=== PATIENT | male | born 1950 | race Caucasian/White ===

== ENCOUNTER 2017-01-31 06:42 | Observation (INO) | payer BC ==
[~2017-01-31] VITALS: Ht 175.3 cm; Wt 90.1 kg
[2017-01-31] VITALS (9 sets, daily range): BP systolic 114–137; BP diastolic 74–89; PULSE 46–73; TEMP 97.9–98
[2017-01-31] MEDS ORDERED: CELEBREX 200MG200 MG PO (07:56)
[2017-01-31 08:32] LABS: BASO % 0.6 % (0.0-2.0); EOS # 0.1 (0.0-0.7); EOS % 2.6 % (0-4.0); GRAN # 3.4 (1.4-6.5); GRAN % 63.3 % (42.2-75.2); HEMATOCRIT 45.4 % (42.0-52.0); HEMOGLOBIN 15.5 g/dl (13.5-18.0); LYMPH # 1.4 (1.2-3.4); LYMPH % 25.3 % (20.0-51.0); MEAN CELL VOLUME 85 fl (80.0-100.0); MEAN CORPUSCULAR HEMOGLOBIN 29 pg (27.0-31.0); MEAN CORPUSCULAR HGB CONC 34 g/dl (33.0-37.0); MEAN PLATELET VOLUME 11.8 fl (7.4-10.4); MONO # 0.4 (0.1-0.6); MONO % 7.8 % (1.7-9.3); PLATELET COUNT 160 K/mm3 (130-400); RED BLOOD COUNT 5.34 M/mm3 (4.20-5.60); REDCELL DISTRIBUTION WIDTH-CV 13.1 % (11.5-14.5); WHITE BLOOD COUNT 5.4 K/mm3 (4.8-10.8)
[2017-01-31 08:35] LABS: PROTHROMBIN TIME 11.6 SECONDS (9.7-12.8)
[2017-01-31 08:40] LABS: CALCIUM 9.2 mg/dL (8.4-10.2); CREATININE, serum 0.97 mg/dL (0.66-1.25)
== END 2017-01-31 22:15 | disposition home or self-care (01) ==
LOC: MEDICAL 07:03
PROVIDERS: Internal Medicine Interventional Cardiology
DX: I49.5 Sick sinus syndrome (principal); I47.2 Ventricular tachycardia; Z82.49 Family history of ischemic heart disease and other diseases of the circulatory system
CPT/HCPCS: C1785; C1894; C1898; G0378; G0379; J0690; J1200; J2250; J2930; J3010; J3370; J7040; J7050

== ENCOUNTER → 2018-07-07 | Outpatient (CLI) | payer MEDICARE, BC ==
[~2018-07-07] MED LIST: CELEBREX 200MG200 MG PO
== END ==
LOC: COL.CARD 13:00
DX: S06.9X9S Unspecified intracranial injury with loss of consciousness of unspecified duration, sequela (principal); F02.80 Dementia in other diseases classified elsewhere, unspecified severity, without behavioral disturbance, psychotic disturbance, mood disturbance, and anxiety; Z87.820 Personal history of traumatic brain injury

== ENCOUNTER 2018-08-28 13:45 | Outpatient (RCR) | payer MEDICARE, BC | END 2018-09-06 | disposition home or self-care (01) | LOC: MKS.ESL.OT | DX: R41.89 Other symptoms and signs involving cognitive functions and awareness (principal); F80.2 Mixed receptive-expressive language disorder | CPT/HCPCS: G8984-GO; G8985-GO; G9168-GN; G9169-GN ==

== ENCOUNTER 2018-10-20 12:45 | Outpatient (RCR) | payer MEDICARE, BC | END 2018-12-06 | disposition home or self-care (01) | LOC: WSST | DX: S06.9X0S Unspecified intracranial injury without loss of consciousness, sequela (principal) ==

== ENCOUNTER 2019-12-31 11:08 | Day surgery (SDC) | payer MEDICARE, BC ==
[2019-12-31] VITALS (12 sets, daily range): BP systolic 110–155; BP diastolic 78–96; PULSE 59–72; TEMP 98.7
[~2019-12-31] VITALS: Ht 175.3 cm; Wt 123.9 kg
[2019-12-31] MEDS ORDERED: KAPSPARGO SPRIN25 MG PO (12:19)
[2019-12-31] MEDS ORDERED: XARELTO20 MG PO (12:20)
[2019-12-31] MEDS ORDERED: MULTAQ400 MG PO (12:20)
[2019-12-31] MEDS ORDERED: PROSCAR 5MG5 MG PO (12:20)
[2019-12-31] MEDS ORDERED: ARICEPT10 MG PO (12:21)
[2019-12-31] MEDS ORDERED: ZOLOFT 50MG50 MG PO (12:21)
[2019-12-31] MEDS ORDERED: OMEGA-3 1000 MG1 CAP PO (12:22)
[2019-12-31] MEDS ORDERED: MUCINEX1200 MG PO (12:23)
[2019-12-31] MEDS ORDERED: TYLENOL 325MG325 MG PO (12:23)
[2019-12-31 12:25] LABS: HEMATOCRIT 43.7 % (42.0-52.0); HEMOGLOBIN 14.3 g/dl (13.5-18.0); MEAN CELL VOLUME 88 fl (80.0-100.0); MEAN CORPUSCULAR HEMOGLOBIN 29 pg (27.0-31.0); MEAN CORPUSCULAR HGB CONC 33 g/dl (33.0-37.0); MEAN PLATELET VOLUME 10.9 fl (7.4-10.4); PLATELET COUNT 184 K/mm3 (130-400); RED BLOOD COUNT 4.99 M/mm3 (4.20-5.60); REDCELL DISTRIBUTION WIDTH-CV 13.7 % (11.5-14.5)
[2019-12-31 12:31] LABS: INR 1.1 (0.8-3.0); PROTHROMBIN TIME 12.3 SECONDS (9.7-12.8)
--- NOTE | 2019-12-31 12:31 | NUR ---
Pt to procedure,report to Esperanza Cabral.
[2019-12-31 12:34] LABS: PARTIAL THROMBOPLASTIN TIME 39.8 SECONDS (26.0-37.0)
[2019-12-31 12:38] LABS: CALCIUM 8.6 mg/dL (8.4-10.2); CREATININE, serum 0.87 (0.66-1.25); POTASSIUM 4.4 mmol/L (3.4-5.0)
--- NOTE | 2019-12-31 12:50 | NUR ---
SEE MERGE DOCUMENTATION FOR MEDICATION ADMINISTRATION TIMES AND INTRA/POST PROCEDURE SEDATION ASSESSMENTS. RIGHT HAND BARBEAU TEST POSITIVE.
--- NOTE | 2019-12-31 17:30 | NUR ---
Pt shut off monitor while this nurse went out of romm per pt .Unable to record recent vital signs due to monitor shut off.Last set obtained and documented. Discharge instructions given to pt.pt verbalizes understanding.Pt has hx of tramatic brain injury so instructions reveiwed with .
== END 2019-12-31 17:53 | disposition home or self-care (01) ==
LOC: COL.CAR 11:08
PROVIDERS: Internal Medicine Interventional Cardiology
DX: I47.2 Ventricular tachycardia (principal); I48.0 Paroxysmal atrial fibrillation; I25.9 Chronic ischemic heart disease, unspecified; I10 Essential (primary) hypertension; E78.5 Hyperlipidemia, unspecified; E66.9 Obesity, unspecified; Z95.0 Presence of cardiac pacemaker; Z79.01 Long term (current) use of anticoagulants; Z79.899 Other long term (current) drug therapy
CPT/HCPCS: J1644; J2250; J3010; Q9967